=== PATIENT | female | born 1990 | race African-American/Black ===

== ENCOUNTER 2016-11-08 08:45 | Emergency (ER) | payer SELFPAY ==
[~2016-11-08] VITALS: Ht 165.1 cm; Wt 70.0 kg
[~2016-11-08 08:45] MED LIST: AMOX500T PO; CHLO.12%30 SWISH-SPIT; IBUP800T23 PO; MMW SWISH-SPIT
[2016-11-08 08:50] VITALS: BP 129/57; PULSE 62; RESP 18; TEMP 97.9; O2SAT 100
--- NOTE | 2016-11-08 08:53 | PD ---
Physical Exam Date Seen by Provider: Nov 08, 2016 Time Seen by Provider: 08:50 Narrative Pt is a 26 year old female presenting to the ED with c/o toothache and facial swelling. The facial swelling started this morning. Toothache is on the left upper. Pt denies any fevers, chills, JULES. Pt states she has had a toothache for some time. VSS. [facility] Supervised Visit with JINNY: Renea Mace Nov 08, 2016 08:53
[2016-11-08 09:08] VITALS: BP 116/69; PULSE 82; RESP 18; O2SAT 100
[2016-11-08] MEDS ORDERED: PENI500T PO (09:30)
--- NOTE | 2016-11-08 09:30 | PD ---
HPI Chief Complaint: Oral / Dental Pain or Problem Time Seen by Provider: 09:14 Travel History International Travel<30 days: No Contact w/Intl Traveler<30days: No Traveled to known affect area: No History of Present Illness HPI 26-year-old female presents with right upper dental pain intermittently for the past month. She states this morning she woke up with swelling noted to her upper face. She states she's not having any fever, vomiting or other concurrent complaints. She states that she has not seen a physician for this yet. She denies taking anything specifically for the pain other than intermittent [id number]. PFSH Past Medical History Medical History: Denies Significant Hx Diminished Hearing: No Influenza Vaccination: No ?: Unknown : 2 Miscarriage: 1 : 1 Past Surgical History Surgical History: No Previous Surgery Social History Alcohol Use: Yes (Occ) Tobacco Use: Yes (3 cigs daily) Substance Use: Yes (Marijuana, Daily) Allergies-Medications (Allergen,Severity, Reaction): Coded Allergies: No Known Allergies (Verified , 04/21/16) Reported Meds & Prescriptions Reported Meds & Active Scripts Active Penicillin V Potassium 500 Mg Tab 500 Mg PO BID 10 Days Ibuprofen 800 Mg Tab 800 Mg PO Q6H PRN Peridex Oral Rinse (Chlorhexidine Gluconate) 0.12 % Ana Luisa 15 Ml SWISH-SPIT BID 10 Days Magic Mouthwash-Diphenhy Formula (Lidocaine/Diphenhydr/Alum/Mg/Simeth) Ml 5 Ml SWISH-SPIT Q3H PRN MAGIC MOUTHWASH=MIX 1/3 VISCOUS LIDOCAINE(80 ML), 1/3 MAALOX(80 ML),AND 1/3 BENADRYL(80 ML) TO EQUAL 240 ML TOTAL VOLUME. Amoxicillin 500 Mg Cap 500 Mg PO BID 10 Days Review of Systems Except as stated in HPI: all other systems reviewed are Neg Physical Exam Narrative GENERAL: Well-nourished, well-developed patient. Well-appearing SKIN: Warm and dry. HEAD: Mild swelling noted to right mid face without overlying cellulitic findings or induration EYES: No injection or drainage. ENT: No nasal drainage noted. Multiple dental caries noted to right upper teeth without periapical abscess NECK: Supple, trachea midline. No meningeal signs CARDIOVASCULAR: Regular rate and rhythm RESPIRATORY: No increased effort. No accessory muscle use. NEUROLOGICAL: Awake and alert. Motor and sensory grossly within normal limits. Normal speech. Data Data Last Documented VS Vital Signs Date Time Temp Pulse Resp B/P Pulse Ox O2 Delivery O2 Flow Rate FiO2 11/08/16 09:08 82 18 116/69 100 Room Air 11/08/16 08:50 97.9 [facility] Medical Decision Making Medical Screen Exam Complete: Yes Emergency Medical Condition: Yes Medical Record Reviewed: Yes (past history confirmed) Differential Diagnosis Dental infection, bite, allergy Narrative Course Patient was stable vitals, minimal swelling on exam, patient agrees to outpatient antibiotics with strict return precautions and close dental follow- up. Diagnosis Primary Impression: Dental infection Patient Instructions: General Instructions Additional Instructions: return as needed, follow with dentist tommorrow, alternate and tylenol as needed Med/Other Pt SpecificInfo: Prescription(s) given Scripts Penicillin V Potassium 500 Mg [id number] Mg PO BID 10 Days Prov:Zhane Schmidt MD 11/08/16 Disposition: 01 DISCHARGE HOME Condition: Stable Zhane Schmidt MD Nov 08, 2016 09:30
== END 2016-11-08 10:10 | disposition home or self-care (01) ==
LOC: NEPE 08:45
DX: K04.7 Periapical abscess without sinus (principal)
CPT/HCPCS: 99282

== ENCOUNTER 2017-09-02 08:50 | Emergency (ER) | payer SELFPAY ==
[~2017-09-02] VITALS: Ht 162.6 cm; Wt 70.0 kg
[~2017-09-02 08:50] MED LIST changes: +PENI500T PO
[2017-09-02 08:52] VITALS: BP 127/85; PULSE 101; RESP 16; TEMP 97.8; O2SAT 99
--- NOTE | 2017-09-02 09:41 | PD ---
HPI Chief Complaint: Oral / Dental Pain or Problem Time Seen by Provider: 09:33 Travel History International Travel<30 days: No Contact w/Intl Traveler<30days: No Traveled to known affect area: No History of Present Illness HPI 27-year-old Afro[place] female presents the emergency department with pain in the right upper first premolar for 4 days. She denies significant swelling or drainage. Pain currently is about a 4 out of 10. No significant sensitivity. She is looking for dental follow-up. She has no other real complaints. No known drug allergies. PFSH Past Medical History Diminished Hearing: No ?: Unknown LMP: 08/02/18 : 2 Miscarriage: 1 : 1 Social History Alcohol Use: Yes (Occ) Tobacco Use: Yes (3 cigs daily) Substance Use: Yes (Marijuana, Daily) Allergies-Medications (Allergen,Severity, Reaction): Coded Allergies: No Known Allergies (Verified , 04/21/16) Reported Meds & Prescriptions Reported Meds & Active Scripts Active Penicillin V Potassium 500 Mg Tab 500 Mg PO Q6H 10 Days Review of Systems Except as stated in HPI: all other systems reviewed are Neg General / Constitutional: No: Fever Eyes: No: Visual changes HENT: Positive: Dental Difficulties, No: Headaches, Vertigo, Lightheadedness, Sore Throat, Rhinitis, Rhinorrhea, Congestion, Nosebleed, Neck Stiffness, Neck Pain, Gingival Bleeding, Earache Cardiovascular: No: Chest Pain or Discomfort Respiratory: No: Shortness of Breath Gastrointestinal: No: Abdominal Pain Genitourinary: No: Dysuria Musculoskeletal: No: Pain Skin: No Rash Neurologic: No: Weakness Psychiatric: No: Depression Endocrine: No: Polydipsia Hematologic/Lymphatic: No: Easy Bruising Physical Exam Narrative GENERAL: Patient appears in no acute distress. SKIN: Warm and dry. Normal color. Normal turgor. HEAD: Atraumatic. Normocephalic. No significant swelling noted. EYES: Pupils equal and round. No scleral icterus. No injection or drainage. ENT: No nasal bleeding or discharge. Mucous membranes pink and moist. Patient has obvious deep caries to the first premolar on the right upper jaw. There is no significant abscess. There is no drainage. Pharynx is clear. Airway is patent. TMs are clear bilaterally. NECK: Trachea midline. Supple and nontender. CARDIOVASCULAR: Regular rate and rhythm. RESPIRATORY: No accessory muscle use. Clear to auscultation. Breath sounds equal bilaterally. GASTROINTESTINAL: Abdomen soft, non-tender, nondistended. Hepatic and splenic margins not palpable. MUSCULOSKELETAL: Extremities without clubbing, cyanosis, or edema. No obvious deformities. NEUROLOGICAL: Awake and alert. No obvious cranial nerve deficits. Motor grossly within normal limits. Five out of 5 muscle strength in the arms and legs. Normal speech. PSYCHIATRIC: Appropriate mood and affect; insight and judgment normal. Data Data Last Documented VS Vital Signs Date Time Temp Pulse Resp B/P (MAP) Pulse Ox O2 Delivery O2 Flow Rate FiO2 09/02/17 08:52 97.8 101 16 127/85 (99) 99 MDM Medical Decision Making Medical Screen Exam Complete: Yes Emergency Medical Condition: Yes Differential Diagnosis Dental caries. Dental pain. Dental abscess. Narrative Course Patient is given Pen-Vee K 500 mg 4 times a day 10 days. Patient take [id number] ibuprofen and Tylenol when necessary Patient is given dental resources information for follow-up. Diagnosis Primary Impression: Dental infection Referrals: Dentist Patient Instructions: Dental Caries (ED), General Instructions Additional Instructions: Patient is given Pen-Vee K 500 mg 4 times a day 10 days. Patient take [id number] ibuprofen and Tylenol when necessary Patient is given dental resources information for follow-up. Med/Other Pt SpecificInfo: Prescription(s) given Scripts Penicillin V Potassium (Penicillin V Potassium) 500 Mg Tab 500 MG PO Q6H for Infection for 10 Days, #40 TAB 0 Refills Prov: Miriam Randolph MD 09/02/17 Disposition: 01 DISCHARGE HOME Condition: Stable Tee Singh Sep 02, 2017 09:41
[2017-09-02] MEDS ORDERED: PENI500T PO (09:45)
== END 2017-09-02 10:00 | disposition home or self-care (01) ==
LOC: NEPK 08:50
DX: K02.9 Dental caries, unspecified (principal); F12.90 Cannabis use, unspecified, uncomplicated; Z72.0 Tobacco use
CPT/HCPCS: 99283